=== PATIENT | male | born 1975 | race American Indian/Alaskan Native ===

== ENCOUNTER 2018-05-11 14:58 | Emergency (ER) | payer SELFPAY ==
[2018-05-11 15:05] VITALS: BMI 26.6
[2018-05-11] MEDS ORDERED: Sodium Chloride 0.9% 1,000 ML IV ONE ×2 (15:13→16:26)
[2018-05-11] MEDS ORDERED: Sodium Chloride 0.9% 1,000 ML ONE ×2 (15:21→16:40)
--- NOTE | 2018-05-11 15:28 | C.PDOC ---
History Of Present Illness 42 year old male presents to the ED complaining of lightheadedness, generalized weakness, polyuria and polydipsia for the past three days. Reports he was visiting a family member who has a blood sugar machine so he tested his blood s ugar and it was greater than 500 which prompted the visit to the ED. Time Seen by Provider: 05/11/18 15:09 Chief Complaint (Nursing): High Blood Sugar History Per: Patient History/Exam Limitations: no limitations Onset/Duration Of Symptoms: Days Current Symptoms Are (Timing): Still Present Past Medical History Reviewed: Historical Data, Nursing Documentation, Vital Signs Vital Signs: Last Vital Signs Temp 99.3 F 05/11/18 15:05 Pulse 103 H 05/11/18 15:05 Resp 18 05/11/18 15:05 BP 125/83 05/11/18 15:05 Pulse Ox 99 05/11/18 15:05 - Medical History Other PMH: Cataract on right eye Other Surgeries: Hx of surgeries Family History: States: Diabetes - Social History Hx Alcohol Use: No Hx Substance Use: No Review Of Systems Constitutional: Positive for: Weakness. Negative for: Fever, Chills Cardiovascular: Positive for: Light Headedness Gastrointestinal: Positive for: Other (Polydipsia ) Genitourinary: Positive for: Other (Polyuria ) Physical Exam - Physical Exam Appears: Non-toxic, Other (comfortable ) Skin: Warm, Dry Head: Normacephalic Eye(s): bilateral: Normal Inspection Oral Mucosa: Dry Neck: Normal ROM Chest: Symmetrical Cardiovascular: Rhythm Regular, Other (mildly tachycardic on exam ) Respiratory: Normal Breath Sounds, No Rales, No Wheezing Gastrointestinal/Abdominal: Soft, No Tenderness Extremity: Normal ROM Extremity: Bilateral: Atraumatic Neurological/Psych: Oriented x3, Normal Speech Gait: Steady ED Course And Treatment - Laboratory Results Result Diagrams: 05/11/18 15:47 05/11/18 15:47 O2 Sat by Pulse Oximetry: 99 (RA) Pulse Ox Interpretation: Normal Progress Note: EKG ordered. Patient treated with IV fluids. Blood and urine collected and sent to the lab for analysis. Disposition Counseled Patient/Family Regarding: Studies Performed, Diagnosis, Need For Followup, Rx Given - Disposition Disposition: HOME/ ROUTINE Disposition Time: 18:30 Condition: STABLE Additional Instructions: FOLLOW UP IN THE MEDICAL CLINIC WITHIN 1 WEEK USE MEDICATION DIRECTED, AND CHECK YOUR BLOOD SUGARS DRINK PLENTY OF WATER RETURN TO ER IF YOU HAVE ANY CONCERNING SYMPTOMS Prescriptions: Blood Sugar Diagnostic [Glucose Test Strip] 1 each MC BID #60 strip Glucose Meter [Blood Glucose Monitoring System] 1 dev XX PRN PRN #1 dev PRN Reason: DIABETES Lancets 1 each MC BID #60 each metFORMIN [glucOPHAGE] 500 mg PO BID #60 tab Instructions: Diabetes Type 2 (DC) Forms: [employer] (Yoruba) Print Language: MALAYSIAN - Clinical Impression Clinical Impression: New onset type 2 diabetes mellitus - Scribe Statement The provider has reviewed the documentation as recorded by the Scribe Angelika Graf All medical record entries made by the Christopheribhazel were at my direction and personally dictated by me. I have reviewed the chart and agree that the record accurately reflects my personal performance of the history, physical exam, medical decision making, and the department course for this patient. I have also personally directed, reviewed, and agree with the discharge instructions and disposition.
[2018-05-11 15:54] LABS: VENOUS BLOOD GAS BASE EXCESS -1.1 mmol/L (0.0-2.0); VENOUS BLOOD GAS PCO2 48 mmHg (40-60); VENOUS BLOOD GAS PO2 31 mm/Hg (30-55); VENOUS BLOOD PH 7.33 (7.32-7.43)
[2018-05-11 15:59] LABS: BASO % 0.6 % (0.0-2.0); EOS # 0.1 K/uL (0.0-0.7); EOS % 0.7 % (0.0-4.0); HEMOGLOBIN 15.9 g/dL (12.0-18.0); LYMPH # 3.5 K/uL (1.0-4.3); LYMPH % 48.7 % (20.0-40.0); MEAN CELL VOLUME 82.4 fL (80.0-94.0); MEAN CORPUSCULAR HGB CONC 35.2 g/dL (33.0-37.0); MONO # 0.3 K/uL (0.0-0.8); MONO % 3.8 % (0.0-10.0); NEUT # 3.4 K/uL (1.8-7.0); NEUT % 46.2 % (50.0-75.0); NRBC % 0.2 % (0.0-2.0); RBC 5.48 Mil/uL (4.40-5.90); RED CELL DISTRIBUTION WIDTH 12.9 % (11.5-14.5); WHITE BLOOD COUNT 7.3 K/uL (4.8-10.8)
[2018-05-11 16:13] LABS: URINE BILIRUBIN NEGATIVE (NEGATIVE); URINE BLOOD NEGATIVE (NEGATIVE); URINE CLARITY Clear (Clear); URINE COLOR Colorless (YELLOW); URINE GLUCOSE (UA) 3+ mg/dL (Normal); URINE LEUKOCYTE ESTERASE NEG Leu/uL (Negative); URINE PROTEIN NEGATIVE (NEGATIVE); URINE UROBILINOGEN NORMAL mg/dL (0.2-1.0)
[2018-05-11 16:23] LABS: ALB/GLOB RATIO 1.6 (1.0-2.1); ALBUMIN 4.8 g/dL (3.5-5.0); ALT/SGPT 46 U/L (21-72); AST/SGOT 28 U/L (17-59); BLOOD UREA NITROGEN 17 mg/dL (9-20); CALCIUM 9.8 mg/dl (8.6-10.4); GFR NON-AFRICAN AMERICAN > 60
[2018-05-11] MEDS ORDERED: (Novolin R) Insulin Human Regular 100 units/ml vial IVP STA (16:26)
[2018-05-11] MEDS ORDERED: (Novolin R) Insulin Human Regular 100 units/ml vial ONE (16:40)
[2018-05-11 18:46] VITALS: BP 137/82; PULSE 82; RESP 16; TEMP 97.4; O2SAT 98
--- NOTE | 2018-05-12 18:39 | CARD ---
APPROVED REPORT Date of service: 05/11/2018 EKG Measurement Heart [id number] <Conclusion> Normal sinus rhythm Normal ECG
== END 2018-05-11 18:58 | disposition home or self-care (01) ==
LOC: C.ER 14:58
DX: E11.9 Type 2 diabetes mellitus without complications (principal)
CPT/HCPCS: 80053; 81001; 82009; 82803; 82948; 83930; 85025; 93005; 96361; 96374; 99285; J7030